=== PATIENT | male | born 1930 | race African-American/Black ===

== ENCOUNTER 2017-08-28 13:29 | Inpatient (IN) | payer OTHER ==
[~2017-08-28] VITALS: Ht 180.3 cm; Wt 82.1 kg
--- NOTE | ~2017-08-28 | EKG ---
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 : 1930 Requested By: Raf Lewis Order Number: [id number] MD: Freddy Garrison Measurements Intervals [place] Rate: 59 P: 37 GA: 249 QRS: -68 QRSD: 138 T: -31 QT: 456 QTc: 452 Interpretive Statements Sinus rhythm Prolonged GA interval RBBB and LAFB Left ventricular hypertrophy Compared to ECG 04/30/2017 15:17:51 No significant changes Electronically Signed On 08-28-2017 14:42:06 [employer]ER[employer] by Freddy Garrison [email or web address] <ELECTRONICALLY SIGNED> By: Freddy Garrison MD 08/28/17 1442 1344 [id number] Freddy Garrison MD /FRANCESCA
--- NOTE | ~2017-08-28 | 2DMMODE ---
[facility] [address] [place] [address] 2 D/M-MODE ECHOCARDIOGRAM Name: SURINDER COYNE Room #: 437-P [facility] IN .R.#: [id number] Admission: 08/28/17 Attend Phys: Janusz Oseguera, Discharge: Date of : [birth year] Date of Service: 08/29/17 1222 Report #: [id number] THIS REPORT FOR: //name// APPROVED REPORT Study performed: 08/29/2017 11:06:00 EXAM: Comprehensive 2D, Doppler, and color-flow Echocardiogram Patient Location: Echo lab Room #: 437 Status: routine BSA: 2.02 HR: 66 bpm BP: 128/60 mmHg Rhythm: NSR Other Information Study Quality: Good Indications Chest pain, near syncope. Hx: HTN, HLP, heart block, PE 2D Dimensions RVDd: 39.54 mm LVEF(%): 60.67 (>50%) IVSd: 12.54 (7-11mm) LVOT Diam: 21.98 (18-24mm) LVDd: 43.00 mm PWd: 12.31 (7-11mm) Ascending Ao: 35.58 (22-36mm) LVDs: 29.17 (25-40mm) Aortic Root: 32.55 mm Rivas's LVEF: 60.67 % Volumes Left Atrial Volume (Systole) Single Plane 4CH: 60.37 mL Single Plane 2CH: 59.49 mL LA ESV Index: 31.00 mL/m2 Aortic Valve AoV Peak Noam.: 2.27 m/s AO Peak Gr.: 13.73 mmHg LVOT Max P.78 mmHg AO Mean Gr.: 10.81 mmHg AO V2 Mean: 1.54 m/s LVOT Max V: 0.97 m/s AO V2 VTI: 46.32 cm HEATHER Vmax: 1.63 cm2 Mitral Valve [facility] [address] [place] [address] 2 D/M-MODE ECHOCARDIOGRAM Name: SURINDER COYNE Room #: 437-P [facility] IN .R.#: [id number] Admission: 08/28/17 Attend Phys: Janusz Oseguera, Discharge: Date of : [birth year] Date of Service: 08/29/17 1222 Report #: [id number] E/A Ratio: 0.7 MV Decel. Time: 326.58 ms MV E Max Noam.: 0.58 m/s MV A Noam.: 0.87 m/s MV PHT: 94.71 ms IVRT: 83.04 ms Pulmonary Valve PV Peak Noam.: 0.99 m/s PV Peak Gr.: 3.95 mmHg Pulmonary Vein P Vein S: 0.52 m/s P Vein D: 0.37 m/s P Vein S/D Ratio: 1.41 Tricuspid Valve TR Peak Noam.: 2.50 m/s RAP Estimate: 5.00 mmHg TR Peak Gr.: 25.04 mmHg PA Pressure: 30.00 mmHg Left Ventricle The left ventricle is normal size. There is normal LV segmental wall motion. Mild concentric left ventricular hypertrophy. Left ventricular systolic function is normal. LVEF is 50-55%. Mild diastolic dysfunction is present (impaired relaxation pattern). Right Ventricle The right ventricle is normal size. The right ventricular systolic function is normal. Atria The left atrium size is normal. The right atrium size is normal. Aortic Valve Aortic valve is thickened and mildly calcified. Trace aortic regurgitation. There is mild valvular aortic stenosis. Calculated aortic valve area is 1.6 cm2 with maximum pressure gradient of 21 mmHg and mean pressure gradient of 11 mmHg. Mitral Valve The mitral valve is normal in structure. Mild mitral regurgitation. Tricuspid Valve [facility] [address] [place] [address] 2 D/M-MODE ECHOCARDIOGRAM Name: SURINDER COYNE Room #: 437-P [facility] IN M.R.#: [id number] Admission: 08/28/17 Attend Phys: Janusz Oseguera, Discharge: Date of : [birth year] Date of Service: 08/29/17 1222 Report #: [id number] The tricuspid valve is normal in structure. Mild tricuspid regurgitation. Estimated PAP is 30mmHg. Pulmonic Valve The pulmonary valve is normal in structure. Mild pulmonic regurgitation. Great Vessels The aortic root is normal in size. The ascending aorta is normal in size. IVC is normal in size and collapses >50% with inspiration. Pericardium There is no pericardial effusion. <Conclusion> Left ventricular systolic function is normal. There is normal LV segmental wall motion. LVEF 50-55%. Mild diastolic dysfunction is present (impaired relaxation pattern). Aortic valve is thickened and mildly calcified. There is mild valvular aortic stenosis. Calculated aortic valve area is 1.6 cm2 with maximum pressure gradient of 21 mmHg and mean pressure gradient of 11 mmHg. Trace insufficiency The mitral valve is normal in structure. Mild mitral regurgitation. Pulmonary artery pressure of 30mmHg There is no pericardial effusion. <ELECTRONICALLY SIGNED> By: Rafa Lemus MD, FACC 08/29/17 122 21 21 Rafa Lemus MD, FACC /INF
[~2017-08-28 13:29] MED LIST: ACETAMINOPHEN325 M1 PO; ADULT LOW DOSE81 MG; ALLOPURINOL 10100 M2 PO; ALLOPURINOL 30300 M1; ALLOPURINOL 30300 M3 PO; AMITRIPTYLINE H10 M1; AMITRIPTYLINE H10 M1 PO; AMMONIUM LACTA225 GM TP; ANTIVERT25 MG PO; APAP500; ASPIR 8181 MG PO; ASPIRIN EC325 M1 PO; ASPIRIN EC81 M1 PO; CARDURA4 MG PO; CELEXA20 MG PO; CHLORTHALIDONE25 MG PO; COUMADIN 2 MG TA2 M1 PO; COUMADIN 4 MG TA4 M1 PO; COUMADIN 5 MG TA5 M1 PO; COUMADIN6 MG PO; DOXYCYCLINE 10100 MG PO; ENOXAPARIN60 MG/0.1 SUBQ; FISH OIL 1,0001 EAC5 PO; FISH OIL 1,2001 EAC3 PO; FLOMAX0.4 MG PO; HUMULIN N100 UNIT/1 SQ; HYTRIN 2MG CAPSU2 M1; HYTRIN 2MG CAPSU2 MG PO; KLOR-CON; LEXAPRO 10 MG T10 M2 PO; LISINOPRIL10 MG PO; LISINOPRIL40 MG; MULTIVITAMINS PO; NITROGLYCERIN0.4 MG SUBLING; NORCO 5-325 TA1 EACH PO; NORVASC10 MG PO; ONE DAILY TABL0.4 MG PO; RANITIDINE; RESTORIL30 MG PO; SERTRALINE HCL25 M1; SERTRALINE HCL25 M2 PO; SERTRALINE HCL50 MG PO; SIMVASTATIN80 MG PO; STUDY DRUG PO; TOPROL XL100 MG PO; TRAMADOL 50 MG50 MG PO; TYLENOL EX-STR500 M2 PO; ZANTAC 150MG T150 M1 PO; ZANTAC 150MG T150 MG PO; ZESTRIL40 MG PO; ZOCOR40 MG PO; ZOCOR80 MG
[2017-08-28 13:30] VITALS: BP 144/72
[2017-08-28 13:53] LABS: ABSOLUTE NEUTROPHILS 4.3 thou/uL (1.4-8.2); BASOPHILS 0.5 % (0.0-2.0); EOSINOPHILS 1.3 % (0.0-3.0); HEMATOCRIT 29.7 % (42.0-52.0); HEMOGLOBIN 9.8 gm/dL (14.0-18.0); LYMPHOCYTES 26.5 % (24.0-44.0); MCH 30.5 pg (26.0-34.0); MCV 92.3 fL (80.0-100.0); MONOCYTES 7.7 % (1.0-8.0); PLATELET COUNT 134 thou/uL (150-400); RBC 3.21 mil/uL (4.50-6.00); RDW 14.3 % (10.5-14.5); WBC 6.8 thou/uL (4.0-11.0)
[2017-08-28 13:59] LABS: MANUAL DIFF NO
[2017-08-28 14:10] LABS: TROPONIN-I < 0.04 ng/mL (<0.06)
[2017-08-28 14:14] LABS: ANION GAP 8 mmol/L (7-16); BUN 31 mg/dL (7-18); CALCIUM 9.7 mg/dL (8.5-10.1); CHLORIDE 108 mmol/L (98-107); CO2 22 mmol/L (21-32); CREATININE 2.6 mg/dL (0.7-1.3); GLUCOSE 112 mg/dL (74-106); POTASSIUM 5.1 mmol/L (3.5-5.1); SODIUM 138 mmol/L (136-145)
[2017-08-28 15:03] LABS: APTT 27.3 Seconds (24.5-32.8); INR 1.5; PROTIME 15.7 Seconds (9.3-11.4)
[2017-08-28 15:25] VITALS: BP 164/73
[2017-08-28 15:35] VITALS: BP 163/75
[2017-08-28 16:47] VITALS: BP 180/84
[2017-08-28 20:01] VITALS: BP 122/59
[2017-08-29 00:31] VITALS: BP 133/62
[2017-08-29 04:52] LABS: ABSOLUTE NEUTROPHILS 3.2 thou/uL (1.4-8.2); BASOPHILS 0.4 % (0.0-2.0); EOSINOPHILS 1.9 % (0.0-3.0); HEMATOCRIT 26.9 % (42.0-52.0); HEMOGLOBIN 9.2 gm/dL (14.0-18.0); LYMPHOCYTES 30.9 % (24.0-44.0); MCH 31.2 pg (26.0-34.0); MCHC 34.1 g/dL (28.0-37.0); MCV 91.5 fL (80.0-100.0); MONOCYTES 10.5 % (1.0-8.0); PLATELET COUNT 126 thou/uL (150-400); POLYS 56.3 % (36.0-66.0); RBC 2.94 mil/uL (4.50-6.00); RDW 14.1 % (10.5-14.5); WBC 5.6 thou/uL (4.0-11.0)
[2017-08-29 04:56] LABS: ANION GAP 7 mmol/L (7-16); BUN 34 mg/dL (7-18); CALCIUM 9.1 mg/dL (8.5-10.1); CHLORIDE 108 mmol/L (98-107); CHOLESTEROL 161 mg/dL (<200); CO2 22 mmol/L (21-32); CREATININE 2.7 mg/dL (0.7-1.3); GLUCOSE 102 mg/dL (74-106); HDL CHOLESTEROL 37 mg/dL (>40); LDL CHOLESTEROL 57 mg/dL (<100); POTASSIUM 4.5 mmol/L (3.5-5.1); SERUM ASSESSMENT Slight Lipemia; SODIUM 137 mmol/L (136-145); TC:HDL 4.4 Ratio (Not establshd); TRIGLYCERIDE 335 mg/dL (<150); VLDL 67 mg/dL (<40)
[2017-08-29 04:58] LABS: MANUAL DIFF NO
[2017-08-29 05:32] VITALS: BP 138/67
[2017-08-29 07:46] VITALS: BP 128/60
[2017-08-29 08:00] VITALS: BP 128/60
[2017-08-29 13:51] LABS: INR 1.6; PROTIME 16.5 Seconds (9.3-11.4)
[2017-08-29 15:37] VITALS: BP 134/70
[2017-08-29 20:00] VITALS: BP 141/64
[2017-08-30 04:00] VITALS: BP 131/67
[2017-08-30 05:55] LABS: INR 1.6; PROTIME 15.8 Seconds (9.3-11.4)
[2017-08-30 08:00] VITALS: BP 147/79
[2017-08-30 12:38] VITALS: BP 147/79
[2017-08-30 16:00] VITALS: BP 149/79
[2017-08-30 16:18] VITALS: BP 147/79
== END 2017-08-30 17:04 | disposition home or self-care (01) | DRG 313 ==
LOC: ER 13:29 → 4S 15:16 → EROBS 15:16 → 4S 15:38 → ENTRNSPT 08-30 16:24 → 4S 08-30 17:04
PROVIDERS: Emergency Medicine; Family Medicine; Hospitalist
DX: R07.89 Other chest pain (principal); R55 Syncope and collapse; K21.9 Gastro-esophageal reflux disease without esophagitis; E78.00 Pure hypercholesterolemia, unspecified; N18.9 Chronic kidney disease, unspecified; I12.9 Hypertensive chronic kidney disease with stage 1 through stage 4 chronic kidney disease, or unspecified chronic kidney disease; N40.0 Benign prostatic hyperplasia without lower urinary tract symptoms; F32.9 Major depressive disorder, single episode, unspecified; G47.00 Insomnia, unspecified; E78.5 Hyperlipidemia, unspecified; I45.10 Unspecified right bundle-branch block; Z79.1 Long term (current) use of non-steroidal anti-inflammatories (NSAID); Z79.01 Long term (current) use of anticoagulants; Z79.899 Other long term (current) drug therapy; Z86.711 Personal history of pulmonary embolism; Z88.5 Allergy status to narcotic agent; Z82.49 Family history of ischemic heart disease and other diseases of the circulatory system
CPT/HCPCS: 10100